=== PATIENT | male | born 1995 | race Hispanic/Latino ===

== ENCOUNTER 2017-02-26 02:01 | Emergency (ER) | payer OTHER ==
[2017-02-26 02:22] VITALS: BP 136/80; PULSE 83; RESP 18; TEMP 98.1; O2SAT 98
--- NOTE | 2017-02-26 02:42 | ED PDOC ---
HPI: Psych/Substance Abuse Time Seen by Provider: 02/26/17 02:11 Chief Complaint (Nursing): Psychiatric Evaluation Chief Complaint (Provider): Suicidal ideation History Per: Patient History/Exam Limitations: no limitations Onset/Duration Of Symptoms: Days (2) Additional Complaint(s): Patient is a 21 y/o male with no significant past medical history presenting to the emergency department for depression and suicidal thoughts ongoing for two days. Reports that he has been on Zoloft since November and is compliant. Attributes worsening depressive symptoms to hardships related to a friend. Denies suicidal plan or other medical complaints. PCP: none provided. Past Medical History Reviewed: Historical Data, Nursing Documentation, Vital Signs Vital Signs: Last Vital Signs Temp 98.1 F 02/26/17 02:18 Pulse 83 02/26/17 02:18 Resp 18 02/26/17 02:18 BP 136/80 02/26/17 02:18 Pulse Ox 98 02/26/17 02:18 - Medical History PMH: No Chronic Diseases, Depression - Surgical History Surgical History: No Surg Hx - Family History Family History: States: Unknown Family Hx - Social History Current smoker - smoking cessation education provided: No Ex-Smoker (has not smoked in the last 12 months): No Alcohol: None Drugs: Denies - Allergies Allergies/Adverse Reactions: Allergies Allergy/AdvReac Type Severity Reaction Status Date / Time No Known Allergies Allergy Verified 02/26/17 02:18 Review of Systems ROS Statement: Except As Marked, All Systems Reviewed And Found Negative Psych: Positive for: Depression, Suicidal ideation (without plan) Physical Exam - Reviewed Nursing Documentation Reviewed: Yes Vital Signs Reviewed: Yes - Physical Exam Appears: Positive for: Non-toxic, No Acute Distress Head Exam: Positive for: ATRAUMATIC, NORMAL INSPECTION, NORMOCEPHALIC Skin: Positive for: Normal Color, Warm, Dry Eye Exam: Positive for: Normal appearance Neck: Positive for: Normal Cardiovascular/Chest: Positive for: Regular Rate, Rhythm Respiratory: Negative for: Accessory Muscle Use, Respiratory Distress Extremity: Positive for: Normal ROM. Negative for: Pedal Edema Neurologic/Psych: Positive for: Alert, Oriented (x3) - ECG O2 Sat by Pulse Oximetry: 98 (RA) Pulse Ox Interpretation: Normal Medical Decision Making Medical Decision Making: Time: 02:31 Initial impression: Patient is a 21 y/o male complaining of depression and suicidal ideation. Initial plan: Urine Drug Screening Crisis Evaluation ED Urine Dipstick Urinalysis 1:1 Sitter Reevaluation 04:15 Patient is cleared by crisis for discharge. Upon provider reevaluation patient is medically stable, and requires no further treatment in the ED at this time. Counseling was provided and all questions were answered regarding diagnosis. There is agreement to discharge plan. Return if symptoms persist or worsen. Clinical Impression: Depression Scribe Attestation: Documented by Sruthi Pitts, acting as a scribe for Juni Costello MD. Provider Scribe Attestation: All medical record entries made by the Scribe were at my direction and personally dictated by me. I have reviewed the chart and agree that the record accurately reflects my personal performance of the history, physical exam, medical decision making, and the department course for this patient. I have also personally directed, reviewed, and agree with the discharge instructions and disposition. Disposition - Clinical Impression Clinical Impression: Depression - Patient ED Disposition Is Patient to be Admitted: No Counseled Patient/Family Regarding: Diagnosis - Disposition Disposition: Routine/Home Disposition Time: 04:15 Condition: STABLE Instructions: Depression (ED) Forms: [facility] ([place])
== END 2017-02-26 05:50 | disposition home or self-care (01) ==
LOC: H.ER 02:01
DX: R45.851 Suicidal ideations (principal); F32.9 Major depressive disorder, single episode, unspecified